=== PATIENT | male | born 1980 | race Caucasian/White ===

== ENCOUNTER 2016-12-29 02:28 | Emergency (ER) | payer OTHER ==
[~2016-12-29] VITALS: Ht 182.9 cm; Wt 64.2 kg
[2016-12-29] MEDS ORDERED: LIDOCAINE 1%, 20ML ONE (03:43)
[2016-12-29] MEDS ORDERED: LIDOCAINE 1%, 20ML SQ ONE (04:00)
[2016-12-29] MEDS ORDERED: BACITRACIN ZINC OINT 500U/GM, 0.9 GM ONE (04:02)
[2016-12-29 04:10] VITALS: BP 124/70
== END 2016-12-29 04:26 | disposition home or self-care (01) ==
LOC: ED 04:05
DX: S01.01XA Laceration without foreign body of scalp, initial encounter (principal); F17.200 Nicotine dependence, unspecified, uncomplicated; Y04.0XXA Assault by unarmed brawl or fight, initial encounter; Y93.89 Activity, other specified; Y99.8 Other external cause status; Y92.410 Unspecified street and highway as the place of occurrence of the external cause
CPT/HCPCS: 12002; 70450